=== PATIENT | male | born 1950 | race Caucasian/White ===

== ENCOUNTER 2017-05-11 20:49 | Emergency (ER) | payer MEDICARE, BC ==
--- NOTE | 2017-05-11 22:39 | EDM.PDOC ---
ED HPI GENERAL MEDICAL PROBLEM - General Chief Complaint: Neurological Problem Stated Complaint: DIZZY TIRED NAUSEA Time Seen by Provider: 05/11/17 21:56 Source of Information: Reports: Patient History Limitations: Reports: No Limitations - History of Present Illness INITIAL COMMENTS - FREE TEXT/NARRATIVE: This is a 67-year-old male. He was at home and had sudden onset of chills with weakness and tiredness [place] of breath and possibly mildly confused. He did have some nausea and he vomited 3 times at home and one time in the ER. He complained of being very dizzy with the room spinning and felt unsteady on his gait and weak. He had no chest pain. On arrival to the ER his NIH stroke scale was negative. He was running a fever of 101 and was noted to have an O2 pulse ox at 88% on room air. When I speak to the patient he is alert and oriented. He denies any recent cough no urinary tract type symptoms no sore throat no cold no sinus abdominal pain. He urinated about 3-4 hours ago he says in the look like Mountain Dew. Since he has gotten here he says he is feeling better. He denies any skin areas of infection he denies any history of prostate problems or infections. No recent diarrhea. - Related Data Allergies Allergy/AdvReac Type Severity Reaction Status Date / Time No Known Allergies Allergy Verified 05/11/17 21:26 Home Meds: Home Meds . [No Known Home Meds] 05/11/17 [History] Past Medical History - Past Health History Medical/Surgical History: Denies Medical/Surgical History Musculoskeletal History: Reports: Other (See Below) Other Musculoskeletal History: sprained foot - Past Surgical History HEENT Surgical History: Reports: Adenoidectomy, Tonsillectomy Social & Family History - Family History Family Medical History: Noncontributory - Tobacco Use Smoking Status *Q: Never Smoker Second Hand Smoke Exposure: No - Caffeine Use Caffeine Use: Reports: Coffee - Recreational Drug Use Recreational Drug Use: No ED ROS GENERAL - Review of Systems Review Of Systems: See Below Constitutional: Reports: Fever, Chills, Weakness, Fatigue HEENT: Reports: No Symptoms Respiratory: Reports: Shortness of Breath. Denies: Wheezing, Pleuritic Chest Pain, Cough Cardiovascular: Denies: Chest Pain Endocrine: Reports: No Symptoms GI/Abdominal: Reports: Nausea, Vomiting. Denies: Abdominal Pain, Diarrhea : Reports: No Symptoms Musculoskeletal: Reports: Other (Feeling weak all over) Skin: Reports: No Symptoms Neurological: Reports: Confusion, Dizziness Psychiatric: Reports: No Symptoms Hematologic/Lymphatic: Reports: No Symptoms ED EXAM, NEURO - Physical Exam Exam: See Below Exam Limited By: No Limitations General Appearance: Alert, WD/WN, No Apparent Distress Eye Exam: Bilateral Eye: Normal Inspection Ears: Normal External Exam, Normal Canal, Normal TMs Nose: Normal Inspection Throat/Mouth: Normal Inspection, Normal Lips, Normal Oropharynx, Normal Voice, No Airway Compromise, Other (The pharynx is minimally inflamed and there are no exudates noted) Head Exam: Atraumatic, Normocephalic Neck: Supple, Non-Tender, Other (No suggestion of nuchal rigidity) Respiratory/Chest: No Respiratory Distress, Lungs Clear, Normal Breath Sounds Cardiovascular: Regular Rate, Rhythm, No Murmur GI/Abdominal: Soft, Non-Tender, Other (He has no areas of tenderness of his abdomen there is no guarding soft nondistended) Neurological: Alert, Normal Mood/Affect, No Motor/Sensory Deficits, Oriented x 3 Back Exam: Full Range of Motion Extremities: Normal Inspection, Normal Range of Motion Psychiatric: Normal Affect, Normal Mood Skin Exam: Warm, Dry Course - Vital Signs Last Recorded V/S: Last Vital Signs Temp 101.6 F H 05/11/17 21:05 Pulse 111 H 05/11/17 21:05 Resp 88 H 05/11/17 21:05 BP 140/74 05/11/17 21:05 Pulse Ox 88 L 05/11/17 21:05 - Orders/Labs/Meds Orders: Active Orders 24 hr Category Date Time Status EKG Documentation Completion [RC] STAT Care 05/11/17 21:55 Active Oxygen Therapy [RC] ASDIRECTED Care 05/11/17 21:55 Active Chest 1V Frontal [CR] Stat Exams 05/11/17 21:55 Taken Sodium Chloride 0.9% [Normal Saline] 1,000 ml Med 05/11/17 22:45 Active IV ASDIRECTED Sodium Chloride 0.9% [Normal Saline] 1,000 ml Med 05/12/17 02:30 Active IV ASDIRECTED Medication Orders Sodium Chloride (Normal Saline) 1,000 mls @ 500 mls/hr IV ASDIRECTED TYE Last Admin: 05/11/17 22:47 Dose: 500 mls/hr Sodium Chloride (Normal Saline) 1,000 mls @ 1,000 mls/hr IV ASDIRECTED TYE Last Admin: 05/12/17 02:25 Dose: 1,000 mls/hr Labs: Laboratory Tests 05/11/17 05/11/17 05/11/17 Range/Units 21:30 21:30 22:30 WBC 12.97 H (4.23-9.07) K/mm3 RBC 4.75 (4.63-6.08) M/mm3 Hgb 13.6 L (13.7-17.5) gm/L Hct 41.0 (40.1-51.0) % MCV 86.3 (79.0-92.2) fl MCH 28.6 (25.7-32.2) pg MCHC 33.2 (32.2-35.5) g/dl RDW Std Deviation 45.0 H (35.1-43.9) fL Plt Count 168 (163-337) K/mm3 MPV 11.2 (9.4-12.3) fl Neut % (Auto) 91.2 H (34.0-67.9) % Lymph % (Auto) 3.9 L (21.8-53.1) % [place] % (Auto) 4.4 L (5.3-12.2) % Eos % (Auto) 0.2 L (0.8-7.0) Baso % (Auto) 0.1 (0.1-1.2) % Neut # (Auto) 11.84 H (1.78-5.38) K/mm3 Lymph # (Auto) 0.51 L (1.32-3.57) K/mm3 [place] # (Auto) 0.57 (0.30-0.82) K/mm3 Eos # (Auto) 0.02 L (0.04-0.54) K/mm3 Baso # (Auto) 0.01 (0.01-0.08) K/mm3 Manual Slide Review Abnormal smear Sodium 141 (136-145) mEq/L Potassium 3.8 (3.5-5.1) mEq/L Chloride 106 (98-107) mEq/L Carbon Dioxide 22 (21-32) mEq/L Anion Gap 16.8 H (5-15) BUN 21 H (7-18) mg/dL Creatinine 1.3 (0.7-1.3) mg/dL Est Cr Clr Drug Dosing TNP Estimated GFR (MDRD) 55 (>60) mL/min BUN/Creatinine Ratio 16.2 (14-18) Glucose 163 H (80-115) mg/dL Lactic Acid 3.0 H (0.4-2.0) mmol/L Calcium 8.9 (8.5-10.1) mg/dL Magnesium 1.6 L (1.8-2.4) mg/dl Total Bilirubin 0.5 (0.2-1.0) mg/dL AST 28 (15-37) U/L ALT 55 (16-63) U/L Alkaline Phosphatase 90 (46-116) U/L Total Protein 7.4 (6.4-8.2) g/dl Albumin 3.9 (3.4-5.0) g/dl Globulin 3.5 gm/dL Albumin/Globulin Ratio 1.1 (1-2) Urine Color (Yellow) Urine Appearance (Clear) Urine pH (5.0-8.0) Ur Specific [place] (1.005-1.030) Urine Protein (Negative) Urine Glucose (UA) (Negative) Urine Ketones (Negative) Urine Occult Blood (Negative) Urine Nitrite (Negative) Urine Bilirubin (Negative) Urine Urobilinogen (0.2-1.0) Ur Leukocyte Esterase (Negative) Urine RBC (0-5) /hpf Urine WBC (0-5) /hpf Ur Epithelial Cells (0-5) /hpf Ur Squamous Epith Cells (0-5) /hpf Urine Bacteria (FEW) /hpf Urine Mucus (FEW) /hpf 05/11/17 05/12/17 05/12/17 Range/Units 22:55 04:45 04:45 WBC 14.83 H (4.23-9.07) K/mm3 RBC 4.38 L (4.63-6.08) M/mm3 Hgb 12.4 L (13.7-17.5) gm/L Hct 38.5 L (40.1-51.0) % MCV 87.9 (79.0-92.2) fl MCH 28.3 (25.7-32.2) pg MCHC 32.2 (32.2-35.5) g/dl RDW Std Deviation 46.3 H (35.1-43.9) fL Plt Count 155 L (163-337) K/mm3 MPV 10.5 (9.4-12.3) fl Neut % (Auto) 89.8 H (34.0-67.9) % Lymph % (Auto) 3.1 L (21.8-53.1) % [place] % (Auto) 6.7 (5.3-12.2) % Eos % (Auto) 0 L (0.8-7.0) Baso % (Auto) 0.1 (0.1-1.2) % Neut # (Auto) 13.33 H (1.78-5.38) K/mm3 Lymph # (Auto) 0.46 L (1.32-3.57) K/mm3 [place] # (Auto) 0.99 H (0.30-0.82) K/mm3 Eos # (Auto) 0.00 L (0.04-0.54) K/mm3 Baso # (Auto) 0.01 (0.01-0.08) K/mm3 Manual Slide Review Abnormal smear Sodium (136-145) mEq/L Potassium (3.5-5.1) mEq/L Chloride (98-107) mEq/L Carbon Dioxide (21-32) mEq/L Anion Gap (5-15) BUN (7-18) mg/dL Creatinine (0.7-1.3) mg/dL Est Cr Clr Drug Dosing Estimated GFR (MDRD) (>60) mL/min BUN/Creatinine Ratio (14-18) Glucose (80-115) mg/dL Lactic Acid 2.5 H (0.4-2.0) mmol/L Calcium (8.5-10.1) mg/dL Magnesium (1.8-2.4) mg/dl Total Bilirubin (0.2-1.0) mg/dL AST (15-37) U/L ALT (16-63) U/L Alkaline Phosphatase (46-116) U/L Total Protein (6.4-8.2) g/dl Albumin (3.4-5.0) g/dl Globulin gm/dL Albumin/Globulin Ratio (1-2) Urine Color Yellow (Yellow) Urine Appearance Slt cloudy H (Clear) Urine pH 5.5 (5.0-8.0) Ur Specific [place] > or = 1.030 (1.005-1.030) Urine Protein Negative (Negative) Urine Glucose (UA) Negative (Negative) Urine Ketones Negative (Negative) Urine Occult Blood Trace-lysed H (Negative) Urine Nitrite Negative (Negative) Urine Bilirubin Negative (Negative) Urine Urobilinogen 0.2 (0.2-1.0) Ur Leukocyte Esterase Negative (Negative) Urine RBC 0-5 (0-5) /hpf Urine WBC 0-5 (0-5) /hpf Ur Epithelial Cells 0-5 (0-5) /hpf Ur Squamous Epith Cells 0-5 (0-5) /hpf Urine Bacteria Rare (FEW) /hpf Urine Mucus Many H (FEW) /hpf Meds: Medications Generic Name Dose Route Start Last Admin Trade Name Freq PRN Reason Stop Dose Admin Sodium Chloride 1,000 mls @ 500 mls/hr 05/11/17 22:45 05/11/17 22:47 Normal Saline IV 500 mls/hr ASDIRECTED TYE Administration Sodium Chloride 1,000 mls @ 1,000 mls/hr 05/12/17 02:30 05/12/17 02:25 Normal Saline IV 1,000 mls/hr ASDIRECTED TYE Administration Discontinued Medications Generic Name Dose Route Start Last Admin Trade Name Freq PRN Reason Stop Dose Admin Sodium Chloride 1,000 mls @ 999 mls/hr 05/12/17 02:21 05/12/17 02:25 Normal Saline IV 05/12/17 03:21 Not Given ONETIME ONE Ceftriaxone Sodium 1 gm/ 100 mls @ 200 mls/hr 05/12/17 05:55 05/12/17 06:06 Sodium Chloride IV 05/12/17 06:24 200 mls/hr ONETIME ONE Administration - Re-Assessments/Exams Free Text/Narrative Re-Assessment/Exam: 05/12/17 06:16 I spoke to the patient at length regarding his elevated white count but his lowering lactic acid. And he is fever and chills this evening. He appears to have some sort of infection. Viral or bacterial and I'm somewhat concerned since we don't seem to be able to find a focus and his white count is elevated somewhat. I am pleased that his lactic acid is falling. We are going to give him a gram Rocephin IV and he is to watch carefully over the next 24 hours if he develops a fever again he is to return to the ER for reevaluation. He was noted to be somewhat dry and possibly he might develop an infiltrate in the lungs once he becomes hydrated. Listening to his lungs a second and third time do not reveal any new rales or crackles he still denies any need to cough no crackles in his lungs when he breathes and no wheezing. 05/12/17 06:30 Patient is feeling good. We will discharge him home with strict instructions. Departure - Departure Time of Disposition: 06:30 Disposition: Home, Self-Care 01 Condition: Good Clinical Impression: Chills, Shortness of breath, Dizziness Nausea & vomiting Qualifiers: Vomiting type: unspecified Vomiting Intractability: non-intractable Qualified Code(s): R11.2 - Nausea with vomiting, unspecified - Discharge Information Referrals: PCP,None [Primary Care Provider] - Forms: ED Department Discharge Additional Instructions: Go home and sleep and rest as much as possible today, drink lots of fluids, if you begin to have chills checked your temperature if it goes above 101.5 return to the ER immediately, you may take some Tylenol or ibuprofen as needed if it's just a low-grade fever less than 101.5, follow up with your family doctor this coming week for recheck - My Orders Last 24 Hours: My Active Orders 05/11/17 21:55 EKG Documentation Completion [RC] STAT Oxygen Therapy [RC] ASDIRECTED Chest 1V Frontal [CR] Stat 05/11/17 22:45 Sodium Chloride 0.9% [Normal Saline] 1,000 ml IV ASDIRECTED 05/12/17 02:30 Sodium Chloride 0.9% [Normal Saline] 1,000 ml IV ASDIRECTED - Assessment/Plan Last 24 Hours: My Active Orders 05/11/17 21:55 EKG Documentation Completion [RC] STAT Oxygen Therapy [RC] ASDIRECTED Chest 1V Frontal [CR] Stat 05/11/17 22:45 Sodium Chloride 0.9% [Normal Saline] 1,000 ml IV ASDIRECTED 05/12/17 02:30 Sodium Chloride 0.9% [Normal Saline] 1,000 ml IV ASDIRECTED
[2017-05-11] MEDS ORDERED: Sodium Chloride 0.9% 1,000 ML IV SCH (22:45)
[2017-05-12 00:25] VITALS: BP 140/74
[2017-05-12] MEDS ORDERED: Sodium Chloride 0.9% 1,000 ML IV ONE (02:21)
[2017-05-12] MEDS ORDERED: Sodium Chloride 0.9% 1,000 ML IV SCH (02:30)
[2017-05-12] MEDS ORDERED: cefTRIAXone 1 GM in Sodium Chloride 0.9% 100 ML IV ONE (05:55)
--- NOTE | 2017-05-13 08:32 | CR ---
Chest: Frontal view of the chest was obtained. Comparison: No previous chest x-ray. Heart size and mediastinum are normal. Minimal scarring or atelectasis is seen within the left midlung. Lungs otherwise are clear. Bony structures are grossly intact. Impression: 1. Slight atelectasis or scarring within the left midlung. 2. Nothing acute is appreciated on portable chest x-ray. Diagnostic code #2
== END 2017-05-12 06:40 | disposition home or self-care (01) ==
LOC: MERGE 20:49 → EDBD 20:49 → JD.ED 20:49
DX: R06.02 Shortness of breath (principal); R42 Dizziness and giddiness; R11.2 Nausea with vomiting, unspecified; Z98.890 Other specified postprocedural states
CPT/HCPCS: 36415; 71010; 80053; 81001; 83605; 83735; 85025; 93005; 96361; 96374; 99284; J0696; J7030; J7040

== ENCOUNTER 2018-06-25 23:19 | Emergency (ER) | payer MEDICARE, BC ==
[2018-06-25] MEDS ORDERED: Aspirin 81 MG Tab.Chew PO STA (23:37)
[2018-06-25] MEDS ORDERED: Simvastatin 40 MG Tab PO STA (23:38)
[2018-06-25] MEDS ORDERED: Clopidogrel 75 MG Tab PO ONE (23:38)
[2018-06-25] MEDS ORDERED: Metoprolol Tartrate 5 MG/5 ML SDV IVPUSH ONE (23:39)
--- NOTE | 2018-06-25 23:44 | EDM.PDOC ---
ED HPI GENERAL MEDICAL PROBLEM - General Chief Complaint: Chest Pain Stated Complaint: chest pain Time Seen by Provider: 06/25/18 23:26 Source of Information: Reports: Patient, Family () History Limitations: Reports: No Limitations - History of Present Illness INITIAL COMMENTS - FREE TEXT/NARRATIVE: The patient states that he developed retrosternal chest pressure/tightness, along with diaphoresis, just as he was going to bed around 22:30 this evening. The discomfort has been waxing and waning, and is worse when he is supine. He states that he transiently felt that in his back, as well. He also reports bilateral upper extremity discomfort, as far down as both elbows, worse on the left than the right. He denies associated dyspnea, nausea, or sense of impending doom. No prior similar symptoms. The patient's PCP is Dr. Osorio Johnson. Chest Pain Score (Numeric/FACES): 6 - Related Data Allergies Allergy/AdvReac Type Severity Reaction Status Date / Time ibuprofen [From Motrin IB] Allergy Other Verified 06/25/18 23:29 Home Meds: Home Meds . [No Known Home Meds] 05/11/17 [History] Past Medical History Cardiovascular History: Reports: High Cholesterol (elevated triglycerides, untreated) - Past Surgical History HEENT Surgical History: Reports: Adenoidectomy, Oral Surgery (wisdom teeth extraction), Tonsillectomy Social & Family History - Family History Family Medical History: Noncontributory - Tobacco Use Smoking Status *Q: Never Smoker Tobacco Use Within Last Twelve Months: Cigars (former), Pipe (former) - Caffeine Use Caffeine Use: Reports: Coffee - Alcohol Use Alcohol Use History: Yes Alcohol Use Frequency: Rarely - Recreational Drug Use Recreational Drug Use: No - Living Situation & Occupation Living situation: Reports: , with Spouse, with Family (Son) Occupation: Employed (Part-time [employer]) ED ROS GENERAL - Review of Systems Review Of Systems: ROS reveals no pertinent complaints other than HPI. ED EXAM, GENERAL - Physical Exam Exam: See Below Exam Limited By: No Limitations General Appearance: Alert, WD/WN, No Apparent Distress Eye Exam: Bilateral Eye: EOMI, Normal Inspection Ears: Normal External Exam, Hearing Grossly Normal Nose: Normal Inspection, No Blood Throat/Mouth: Normal Inspection, Normal Lips, Normal Voice, No Airway Compromise Head: Atraumatic, Normocephalic Neck: Normal Inspection, Full Range of Motion Respiratory/Chest: No Respiratory Distress, Lungs Clear, Normal Breath Sounds, No Accessory Muscle Use, Chest Non-Tender Cardiovascular: Normal Peripheral Pulses, No Edema, No Gallop, No JVD, No Murmur , No Rub, Bradycardia (regular) Peripheral Pulses: 4+: Radial (L), Radial (R) GI/Abdominal: Normal Bowel Sounds, Soft, Non-Tender, No Organomegaly, No Distention, No Abnormal Bruit, No Mass, Hernia (umbilical, easily reduced) (Male) Exam: Deferred Rectal (Males) Exam: Deferred Back Exam: Normal Inspection, Full Range of Motion, NT Extremities: Normal Inspection, Normal Range of Motion, Normal Capillary Refill , Other (Trace bilateral pretibial edema) Neurological: Alert, Oriented, Normal Cognition, No Motor/Sensory Deficits Psychiatric: Normal Affect Skin Exam: Warm, Dry, Intact, Normal Color, No Rash EKG INTERPRETATION EKG Date: 06/25/18 Time: 23:23 Rhythm: Other (Sinus bradycardia) Rate (Beats/Min): 57 [place]: Normal P-Wave: Present QRS: Normal ST-T: Elevated (inferior leads) QT: Normal Comparison: Change From Previous EKG (Inferior ST elevations new since 05/11/2018 ) Course - Vital Signs Last Recorded V/S: Last Vital Signs Temp 36.1 C 06/25/18 23:23 Pulse 65 06/25/18 23:47 Resp 18 06/25/18 23:23 BP 178/88 H 06/25/18 23:47 Pulse Ox 97 06/25/18 23:23 - Orders/Labs/Meds Orders: Active Orders 24 hr Category Date Time Status EKG Documentation Completion [RC] STAT Care 06/25/18 23:27 Active EKG Documentation Completion [RC] STAT Care 06/26/18 00:01 Active Chest 1V Frontal [CR] Stat Exams 06/25/18 23:27 Taken Heparin Sodium/D5W [Heparin 25,000 Units in D5W 500 ML] Med 06/25/18 23:45 Active 25,000 units in 500 ml IV TITRATE Medication Orders Heparin Sodium/Dextrose (Heparin 25,000 Units In D5w 500 Ml) 25,000 units in 500 mls @ 20 mls/hr IV TITRATE TYE; Protocol Last Admin: 06/26/18 00:02 Dose: 20 mls/hr, 20 mls/hr Labs: Laboratory Tests 06/25/18 06/25/18 06/25/18 Range/Units 23:29 23:29 23:29 WBC 6.30 (4.23-9.07) K/mm3 RBC 4.94 (4.63-6.08) M/mm3 Hgb 13.9 (13.7-17.5) gm/L Hct 43.4 (40.1-51.0) % MCV 87.9 (79.0-92.2) fl MCH 28.1 (25.7-32.2) pg MCHC 32.0 L (32.2-35.5) g/dl RDW Std Deviation 42.7 (35.1-43.9) fL Plt Count 237 (163-337) K/mm3 MPV 10.5 (9.4-12.3) fl Neutrophils % (Manual) 67 H (40-60) % Band Neutrophils % 0 (0-10) % Lymphocytes % (Manual) 21 (20-40) % Atypical Lymphs % 6 % Monocytes % (Manual) 5 (2-10) % Eosinophils % (Manual) 1 (0.8-7.0) % Basophils % (Manual) 0 L (0.2-1.2) Platelet Estimate Adequate Plt Morphology Comment Normal RBC Morph Comment Normal PT 9.9 (9.5-12.1) SECONDS INR < 0.93 APTT 25 (24-31) SECONDS Sodium 141 (136-145) mEq/L Potassium 3.4 L (3.5-5.1) mEq/L Chloride 105 (98-107) mEq/L Carbon Dioxide 28 (21-32) mEq/L Anion Gap 11.4 (5-15) BUN 21 H (7-18) mg/dL Creatinine 1.0 (0.7-1.3) mg/dL Est Cr Clr Drug Dosing 2.79 mL/min Estimated GFR (MDRD) > 60 (>60) mL/min BUN/Creatinine Ratio 21.0 H (14-18) Glucose 121 H (80-115) mg/dL Calcium 9.1 (8.5-10.1) mg/dL Total Bilirubin 0.3 (0.2-1.0) mg/dL AST 18 (15-37) U/L ALT 32 (16-63) U/L Alkaline Phosphatase 110 (46-116) U/L Troponin I 0.037 (0.00-0.056) ng/mL Total Protein 7.6 (6.4-8.2) g/dl Albumin 4.0 (3.4-5.0) g/dl Globulin 3.6 gm/dL Albumin/Globulin Ratio 1.1 (1-2) Meds: Medications Generic Name Dose Route Start Last Admin Trade Name Freq PRN Reason Stop Dose Admin Heparin Sodium/Dextrose 25,000 units in 500 mls @ 20 mls/hr 06/25/18 23:45 00:02 Heparin 25,000 Units In D5w 500 Ml IV 20 mls/hr TITRATE TYE 20 mls/hr Administration Protocol Discontinued Medications Generic Name Dose Route Start Last Admin Trade Name Freq PRN Reason Stop Dose Admin Aspirin 324 mg 06/25/18 23:37 06/25/18 23:45 Aspirin PO 06/25/18 23:38 324 mg ONETIME STA Administration Clopidogrel Bisulfate 75 mg 06/25/18 23:38 06/25/18 23:46 Plavix PO 06/25/18 23:39 75 mg ONETIME ONE Administration Heparin Sodium (Porcine) 4,000 units 06/25/18 23:45 06/26/18 00:03 Heparin Sodium IV 06/25/18 23:46 4,000 units ONETIME ONE Administration Heparin Sodium (Porcine) Confirm 06/25/18 23:55 06/26/18 00:05 Heparin Sodium Administered 06/25/18 23:56 Not Given Dose 5,000 units .ROUTE .STK-MED ONE Heparin Sodium (Porcine) Confirm 06/26/18 00:00 06/26/18 00:05 Heparin Sodium Administered 06/26/18 00:01 Not Given Dose 5,000 units .ROUTE .STK-MED ONE Metoprolol Tartrate 5 mg 06/25/18 23:39 06/25/18 23:47 Lopressor IVPUSH 06/25/18 23:40 5 mg ONETIME ONE Administration Simvastatin 80 mg 06/25/18 23:38 06/25/18 23:44 Zocor PO 06/25/18 23:39 80 mg ONETIME STA Administration - Re-Assessments/Exams Free Text/Narrative Re-Assessment/Exam: 06/25/18 23:40 The patient appears to be suffering an inferior STEMI. The patient will need to be transferred to [facility], for primary coronary angiogram. The patient prefers [facility]. I have ordered aspirin, Zocor, and Plavix, and a heparin drip. I have also ordered Lopressor, despite the patient's mild bradycardia, because his blood pressure is elevated at 176/88. We will monitor his response closely. 06/25/18 23:43 Portable chest radiograph appears to be grossly normal. Cardiac silhouette is within normal limits. No pulmonary vascular congestion. No pleural effusions. No focal infiltrate. No pneumothorax. Formal read per the Radiologist pending. The chest x-ray image has been pushed to [facility]. 06/25/18 23:47 Case discussed with [facility] Call at 23:39. Case then discussed with Dr. Royal, Emergency Physician at [facility] , at 23:42. He accepts the patient for transfer. We will transport the patient by the fastest method possible - helicopter versus ground. 06/25/18 23:55 Notified that the helicopter crew is off-service presently, therefore the fastest method of transport is by ground ambulance. 06/26/18 00:03 Notified by [facility] that they would like us to repeat an ECG, then have me talk to the [facility]. 06/26/18 00:05 Repeat ECG demonstrates sinus bradycardia at [address] elevations in the inferior leads persist, with slight ST elevation in the anterolateral leads. No LAD. No LVH. No intraventricular conduction delays. QTc is within normal limits at 406 ms. 06/26/18 00:[address] [place], [facility] at [facility], at 00: 08. He agrees with the patient's treatment thus far, as well as the plan for transfer to their facility. Departure - Departure Time of Disposition: 23:45 Disposition: DC/Tfer to Acute Hospital 02 Reason for Transfer *Q: Primary PCI Indicated Condition: Fair Clinical Impression: ST elevation myocardial infarction (STEMI) of inferior wall Referrals: Osorio Johnson Jr, MD [Primary Care Provider] - Forms: ED Department Discharge - My Orders Last 24 Hours: My Active Orders 06/25/18 23:27 EKG Documentation Completion [RC] STAT Chest 1V Frontal [CR] Stat 06/25/18 23:45 Heparin Sodium/D5W [Heparin 25,000 Units in D5W 500 ML] 25,000 units in 500 ml IV TITRATE 06/26/18 00:01 EKG Documentation Completion [RC] STAT - Assessment/Plan Last 24 Hours: My Active Orders 06/25/18 23:27 EKG Documentation Completion [RC] STAT Chest 1V Frontal [CR] Stat 06/25/18 23:45 Heparin Sodium/D5W [Heparin 25,000 Units in D5W 500 ML] 25,000 units in 500 ml IV TITRATE 06/26/18 00:01 EKG Documentation Completion [RC] STAT
[2018-06-25] MEDS ORDERED: Heparin Sodium 5,000 Units/ML Vial IV ONE (23:45)
[2018-06-25] MEDS ORDERED: Heparin Sodium/D5W 25,000 UNITS/500 ML BAG IV SCH (23:45)
[2018-06-25 23:51] VITALS: BP 178/88
[2018-06-25] MEDS ORDERED: Heparin Sodium 5,000 Units/ML Vial ONE (23:55)
[2018-06-26] MEDS ORDERED: Heparin Sodium 5,000 Units/ML Vial ONE
--- NOTE | 2018-06-26 07:19 | CR ---
Chest: Portable view of the chest was obtained. Comparison: No previous study. Heart size is normal. Tortuous thoracic aorta is seen. Lungs are clear. Bony structures are unremarkable. Impression: 1. Nothing acute is seen on portable chest x-ray. Diagnostic code #1
== END 2018-06-26 00:19 ==
LOC: JD.ED 23:19
DX: I21.19 ST elevation (STEMI) myocardial infarction involving other coronary artery of inferior wall (principal)
CPT/HCPCS: 36415; 71045; 80053; 84484; 85007; 85027; 85610; 85730; 93005; 96365; 96374; 96375; 99285; A9270; J1644; J3490